=== PATIENT | female | born 1940 | race Caucasian/White ===

== ENCOUNTER → 2020-12-04 | Outpatient (CLI) | payer MEDICARE, OTHER ==
[~2020-12-04] MED LIST: ASPIRIN EC81 MG PO; LIPITOR20 MG PO; ZOLOFT50 MG PO
== END ==
LOC: CT 09:51
DX: R51.9 Headache, unspecified (principal)
CPT/HCPCS: 36415; 70470; 82565; 84520; Q9963

== ENCOUNTER 2021-02-09 09:19 | Observation (INO) | payer MEDICARE, OTHER ==
[~2021-02-09] VITALS: Ht 160 cm; Wt 46.3 kg
[2021-02-09 10:25] LABS: HEMOGLOBIN 13.7 gm/dl (12.3-15.3); RED BLOOD COUNT 4.35 M/UL (4.00-5.10); WHITE BLOOD COUNT 5.8 K/UL (4.5-11.0)
[2021-02-09 10:58] LABS: BUN/CREATININE RATIO 14 (0-10)
[2021-02-09] MEDS ORDERED: LIPITOR20 MG PO (18:52)
[2021-02-09] MEDS ORDERED: ZOLOFT50 MG PO (18:52)
[2021-02-10 02:52] LABS: HEMOGLOBIN 11.3 gm/dl (12.3-15.3); RED BLOOD COUNT 3.61 M/UL (4.00-5.10); WHITE BLOOD COUNT 5.7 K/UL (4.5-11.0)
[2021-02-10 03:43] LABS: BUN/CREATININE RATIO 10 (0-10)
[2021-02-10] MEDS ORDERED: ASPIRIN EC81 MG PO (10:06)
== END 2021-02-10 12:24 | disposition home or self-care (01) ==
LOC: ER1 09:19 → CDU 11:27 → MED SURG 4 13:21
PROVIDERS: Physician Assistant; ADMIT Internal Medicine
DX: R11.2 Nausea with vomiting, unspecified (principal); R77.8 Other specified abnormalities of plasma proteins; R94.31 Abnormal electrocardiogram [ECG] [EKG]; F32.9 Major depressive disorder, single episode, unspecified; E87.6 Hypokalemia; Z20.822 Contact with and (suspected) exposure to COVID-19; E78.5 Hyperlipidemia, unspecified; Z85.3 Personal history of malignant neoplasm of breast; Z90.11 Acquired absence of right breast and nipple
CPT/HCPCS: ECHO; 36415; 71045; 80048; 80053; 82550; 82553; 83735; 83874; 84132; 84484; 85025; 93005; 93306; 96374; 99285; G0378; J2405; J7030; U0002

== ENCOUNTER → 2021-03-11 | Outpatient (CLI) | payer MEDICARE, OTHER | LOC: KOH-I 12:58 | DX: J43.9 Emphysema, unspecified (principal) | CPT/HCPCS: 71046 ==

== ENCOUNTER → 2021-07-03 | Outpatient (CLI) | payer MEDICARE, OTHER | LOC: KOH-I 09:51 | DX: R55 Syncope and collapse (principal) | CPT/HCPCS: 70450 ==

== ENCOUNTER → 2021-07-18 | Outpatient (CLI) | payer MEDICARE, OTHER | LOC: EXRD 11:06 | DX: I63.81 Other cerebral infarction due to occlusion or stenosis of small artery (principal) | CPT/HCPCS: 93880 ==